=== PATIENT | female | born 1985 | race African-American/Black ===

== ENCOUNTER 2020-08-04 19:34 | Emergency (ER) | payer MEDICAID ==
[~2020-08-04] VITALS: Ht 172.7 cm; Wt 149.5 kg
[2020-08-04 19:55] VITALS: Ht 172.7 cm; Wt 149.5 kg
[2020-08-04] MEDS ORDERED: SYMBICORT 16010.2 GM INH (19:56)
[2020-08-04] MEDS ORDERED: VENTOLIN HFA [SP8 GM INH (19:56)
[2020-08-04] MEDS ORDERED: OMEPRAZOLE20 M1 PO (21:16)
[2020-08-04 21:57] LABS: BASOPHILS 0.7 % (0-2); EOSINOPHILS 1.7 % (0-7); HEMATOCRIT 34.8 % (36.0-48.0); HEMOGLOBIN 11.2 g/dL (12-16); LYMPHOCYTES 26.9 % (15-50); MCH 23.7 pg (26.0-34.0); MCV 73.8 fL (80.0-100.0); MEAN PLATELET VOLUME 8.2 fL (7.4-10.4); MONOCYTES 5.5 % (2-11); NEUTROPHILS 65.2 % (40-80); PLATELET COUNT 377 10x3/uL (130-400); RBC 4.72 10x6/uL (4.00-5.40); RDW 17.4 % (11.5-14.5); WBC 10.7 10x3/uL (4.8-10.8)
[2020-08-04 22:00] LABS: CALC OSMOLALITY 279 mosm/kg (275-300); CALCIUM 9.3 mg/dL (8.5-10.1); CHLORIDE - SERUM 106 mmol/L (98-107); CREATININE - SERUM 0.9 mg/dL (0.6-1.3); GLUCOSE 95 mg/dL (74-106); POTASSIUM - SERUM 3.8 mmol/L (3.5-5.1); SODIUM 140 mmol/L (136-145); UREA NITROGEN 15 mg/dL (7-18); eGFR NON AFRICAN AMERICAN 76 mL/min (90-120)
[2020-08-04 22:07] LABS: ALBUMIN 3.2 g/dL (3.4-5.0); ALKALINE PHOSPHATASE 119 U/L (30-120); ALT (SGPT) 23 U/L (10-68); BILIRUBIN - TOTAL 0.25 mg/dL (0.2-1.3); LIPASE 58 U/L (73-393); PROTEIN - SERUM 8.3 g/dL (6.4-8.2); TROPONIN-I < 0.017 ng/mL (0.000-0.060)
[2020-08-04 22:51] VITALS: BP 152/98
== END 2020-08-04 22:51 | disposition home or self-care (01) ==
LOC: D.ER 19:34
PROVIDERS: Family Medicine
DX: R10.13 Epigastric pain (principal); J45.909 Unspecified asthma, uncomplicated; R07.9 Chest pain, unspecified